=== PATIENT | female | born 1990 | race Caucasian/White ===

== ENCOUNTER 2021-08-28 19:07 | Emergency (ER) | payer SELFPAY ==
[~2021-08-28] VITALS: Ht 160 cm; Wt 99.8 kg
[2021-08-28 19:25] VITALS: BP 140/90
--- NOTE | 2021-08-28 19:28 | NUR ---
TO LOBBY A/W BED AMBULATORY
--- NOTE | 2021-08-28 22:51 | NUR ---
Female Regulatory Coordinator accompanied female patient for vaginal exam.
[2021-08-28] MEDS ORDERED: MICO2CRE VG (22:55)
[2021-08-28] MEDS ORDERED: FLUC150T PO (22:55)
[2021-08-28 23:00] VITALS: BP 140/90
--- NOTE | 2021-08-28 23:00 | NUR ---
Patient discharged. Written and verbal after care instructions given and explained about Vagical Yeast infection. Patient alert, oriented and verbalized understanding of instructions. Ambulatory with steady gait. All questions addressed prior to discharge. ID band removed. Patient advised to follow up with PMD. Rx of Fluconazole and Monistat-7 Vag 2% given. Patient educated on indication of medication including possible reaction and side effects. Opportunity to ask questions provided and answered.
[2021-08-28 23:38] LABS: APPEARANCE,URINE SL CLOUDY (CLEAR); BILIRUBIN,URINE NEGATIVE (NEGATIVE); BLOOD, URINE TRACE-I (NEGATIVE); COLOR,URINE YELLOW (YELLOW); LEUKOCYTE ESTERASE ,URINE 1+ (NEGATIVE); NITRITE, URINE NEGATIVE (NEGATIVE); UGLUCOSE NEGATIVE (NEGATIVE)
[2021-08-28 23:44] LABS: RBC,URINE 0-5 /HPF (0-5); WBC,URINE 20-60 /HPF (0-5)
== END 2021-08-28 23:00 | disposition home or self-care (01) ==
LOC: MED 19:07
DX: B37.3 Candidiasis of vulva and vagina (principal); Z79.899 Other long term (current) drug therapy
CPT/HCPCS: 81001; 81025; 87086; 87491; 99283